=== PATIENT | male | born 1965 | race African-American/Black ===

== ENCOUNTER 2017-04-25 14:00 | Inpatient (IN) | payer MEDICARE, OTHER ==
[~2017-04-25] VITALS: Ht 187.5 cm; Wt 99.0 kg
[~2017-04-25 14:00] MED LIST: LORTA5 PO; METHO500 PO; ROBA750T3 PO; ROSU40 PO; TYLE3 PO; [UNRECOGNIZED DRUG - OTHER] PO
[2017-04-25 14:25] VITALS: BP 163/100; PULSE 71; RESP 18; TEMP 99; O2SAT 96
[2017-04-25] MEDS ORDERED: SILVER SULFADIAZINE 1% CR 400 GM JAR TOPICAL ONE (14:30)
[2017-04-25] MEDS ORDERED: MORPHINE SULFATE 4 MG/ML INJ IV PUSH ONE ×2 (14:30→18:45)
[2017-04-25] MEDS ORDERED: TYLETAB34 PO (14:39)
[2017-04-25] MEDS ORDERED: METH750T PO (14:39)
[2017-04-25] MEDS ORDERED: ROSU40 PO (14:39)
[2017-04-25] MEDS ORDERED: ATRITAB PO (14:39)
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
[2017-04-25 16:24] LABS: AUTOMATED NEUTROPHIL # 10.3 TH/MM3 (1.8-7.7); BASOPHIL % 0.3 % (0.0-2.0); EOSINOPHIL # 0.1 TH/MM3 (0-0.4); EOSINOPHIL % 0.8 % (0.0-4.0); HEMATOCRIT 44.4 % (39.0-51.0); HEMO FLAGS DIFF FINAL; MEAN CELL VOLUME 91.6 FL (80.0-100.0); MEAN CORPUSCULAR HEMOGLOBIN 31.4 PG (27.0-34.0); MEAN CORPUSCULAR HGB CONC 34.2 % (32.0-36.0); MONO % 6.9 % (0.0-8.0); PLATELET COUNT 208 TH/MM3 (150-450); RED BLOOD COUNT 4.85 MIL/MM3 (4.50-5.90); WHITE BLOOD COUNT 12.3 TH/MM3 (4.0-11.0)
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
--- NOTE | 2017-04-25 16:39 | RADRPT ---
EXAM DATE/TIME: 04/25/2017 15:55 [facility] COMPARISON: FOOT LEFT COMPLETE ([id number]), April 25, 2017, 15:16. INDICATIONS : Post reduction MEDICAL HISTORY : None. SURGICAL HISTORY : None. ENCOUNTER: Subsequent ACUITY: 1 day PAIN SCORE: 4/10 LOCATION: Left foot FINDINGS: The first interphalangeal joint is completely dislocated dorsally not significantly changed. CONCLUSION: Complete dislocation of the first interphalangeal joint dorsally. Estefania Harris MD on April 25, 2017 at 16:37 Board Certified Radiologist. This report was verified electronically.
[2017-04-25 16:44] LABS: ALT (GPT) 36 U/L (12-78)
[2017-04-25 16:45] LABS: ANION GAP 5 MEQ/L (5-15); AST (GOT) 29 U/L (15-37); BICARBONATE 25.7 MEQ/L (21.0-32.0); BLOOD UREA NITROGEN 14 MG/DL (7-18); CHLORIDE 107 MEQ/L (98-107); GLOMERULAR FILTRATION RATE 63 ML/MIN (>89); POTASSIUM 4.1 MEQ/L (3.5-5.1); SODIUM (NA) 138 MEQ/L (136-145)
[2017-04-25 16:47] LABS: ALKALINE PHOSPHATASE 48 U/L (45-117); TOTAL BILIRUBIN ADULT 0.4 MG/DL (0.2-1.0)
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
[2017-04-25] MEDS ORDERED: IOHEXOL 350 MG/ML 10 ML VIAL (for RAD DIAG) IV ONE (18:42)
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
[2017-04-25] MEDS ORDERED: ONDANSETRON HCL 4 MG/2 ML VIAL IVP PRN (19:30)
[2017-04-25] MEDS ORDERED: SODIUM CHLORIDE 0.9% FLUSH 10 ML FLUSH IV FLUSH PRN (19:30)
[2017-04-25] MEDS ORDERED: SENNOSIDES 8.6 MG TAB PO PRN (19:30)
[2017-04-25] MEDS ORDERED: MAGNESIUM HYDROXIDE SUSP 30 ML CUP PO PRN (19:30)
[2017-04-25] MEDS ORDERED: ACETAMINOPHEN 325 MG TAB PO PRN (19:30)
[2017-04-25] MEDS ORDERED: BISACODYL 10 MG SUPP RECTAL PRN (19:30)
[2017-04-25] MEDS ORDERED: LACTULOSE SYRUP 20 GM/30 ML CUP PO PRN (19:30)
[2017-04-25 19:50] VITALS: BP 167/108; PULSE 99; RESP 20; O2SAT 98
[2017-04-25] MEDS: SODIUM CHLORIDE 0.9% FLUSH 10 ML FLUSH IV FLUSH SCH (19:53)
[2017-04-25] MEDS: DOCUSATE SODIUM 50 MG/SENNA 8.6 MG TAB PO SCH (19:53)
[2017-04-25] MEDS: SODIUM CHLOR 0.9% 1000 ML INJ 1,000 ML IV SCH (19:53)
[2017-04-25] MEDS: METHOCARBAMOL 500 MG TAB PO SCH (19:53)
[2017-04-25 20:00] VITALS: BP 127/95; PULSE 119; RESP 18; TEMP 100.6; O2SAT 92
[2017-04-25] MEDS ORDERED: NON-FORMULARY DRUG (Efavirenz-Emtricitabine-Tenofovir (Atripla) 1 TAB) PO SCH (21:00)
[2017-04-25 21:16] VITALS: BP 138/88; PULSE 100; RESP 17; O2SAT 98
[2017-04-25] MEDS: EMTRICITABINE/TENOFOVIR 200 MG/300 MG TAB PO SCH (22:25)
[2017-04-25] MEDS: HYDROmorphone HCL PF 1 MG/ML VIAL IV PRN (22:31)
[2017-04-26] VITALS (7 sets, daily range): BP systolic 114–131; BP diastolic 70–96; PULSE 93–108; RESP 17–18; TEMP 98.2–99.9; O2SAT 92–96
[2017-04-26] MEDS: HYDROmorphone HCL PF 1 MG/ML VIAL IV PRN ×4 (03:12→16:35)
[2017-04-26] MEDS: SODIUM CHLOR 0.9% 1000 ML INJ 1,000 ML IV SCH ×3 (03:16→20:57)
[2017-04-26 04:33] LABS: AUTOMATED NEUTROPHIL # 5.9 TH/MM3 (1.8-7.7); BASOPHIL # 0.2 TH/MM3 (0-0.2); BASOPHIL % 2.3 % (0.0-2.0); EOSINOPHIL # 0.1 TH/MM3 (0-0.4); EOSINOPHIL % 1.6 % (0.0-4.0); HEMATOCRIT 44.3 % (39.0-51.0); HEMO FLAGS DIFF FINAL; LYMPHOCYTE # 0.9 TH/MM3 (1.0-4.8); MEAN CELL VOLUME 91.1 FL (80.0-100.0); MEAN CORPUSCULAR HEMOGLOBIN 31.5 PG (27.0-34.0); MEAN CORPUSCULAR HGB CONC 34.6 % (32.0-36.0); MONO % 7.3 % (0.0-8.0); NEUT % 76.8 % (16.0-70.0); PLATELET COUNT 200 TH/MM3 (150-450); RED BLOOD COUNT 4.86 MIL/MM3 (4.50-5.90); RED CELL DISTRIBUTION WIDTH 13.3 % (11.6-17.2); WHITE BLOOD COUNT 7.7 TH/MM3 (4.0-11.0)
[2017-04-26 05:01] LABS: ALKALINE PHOSPHATASE 43 U/L (45-117); ALT (GPT) 27 U/L (12-78); ANION GAP 11 MEQ/L (5-15); AST (GOT) 18 U/L (15-37); BICARBONATE 24.1 MEQ/L (21.0-32.0); BLOOD UREA NITROGEN 14 MG/DL (7-18); CHLORIDE 105 MEQ/L (98-107); GLOMERULAR FILTRATION RATE 68 ML/MIN (>89); POTASSIUM 3.6 MEQ/L (3.5-5.1); SODIUM (NA) 140 MEQ/L (136-145); TOTAL BILIRUBIN ADULT 0.8 MG/DL (0.2-1.0)
[2017-04-26] MEDS: METHOCARBAMOL 500 MG TAB PO SCH ×4 (07:27→20:55)
[2017-04-26] MEDS: DOCUSATE SODIUM 50 MG/SENNA 8.6 MG TAB PO SCH ×2 (07:27→20:55)
[2017-04-26] MEDS: ATORVASTATIN 80 MG TAB PO SCH (07:28)
[2017-04-26] MEDS: SODIUM CHLORIDE 0.9% FLUSH 10 ML FLUSH IV FLUSH SCH ×2 (07:28→20:57)
--- NOTE | 2017-04-26 12:06 | PD.POD.CON ---
Patient Intake Chief Complaint Dislocated IPJ left hallux Consult Requested by Dr. Trejo Reason for Consult Treatment of subluxation of the left interphalangeal joint of hallux Primary Care Physician [facility] Coded Allergies: penicillin G (Unverified Allergy, Mild, Hives, 04/25/17) promethazine (Unverified Adverse Reaction, Intermediate, VOMITING, 04/25/17 ) Preferred Language to Discuss: Taiwanese Barriers to Learning: None Teaching Method: Discussion Vital Signs Date Time Temp Pulse Resp B/P (MAP) Pulse Ox O2 Delivery O2 Flow Rate FiO2 04/26/17 07:50 99.9 101 17 127/81 (96) 96 04/26/17 04:00 98.2 108 18 114/70 (85) 93 04/26/17 00:00 99.8 94 18 129/87 (101) 95 04/25/17 21:16 100 17 138/88 (105) 98 Room Air 04/25/17 20:00 100.6 119 18 127/95 (106) 92 04/25/17 19:50 99 20 167/108 (127) 98 Room Air 04/25/17 14:25 99.0 71 18 163/100 (121) 96 04/25/17 14:25 Room Air Pain scale used: 0-10 numeric scale Pain score: 4 Medications Current Medications Silver Sulfadiazine (Silvadene 1% Cream (400 Gm)) 1 applic ONCE ONCE TOPICAL Last administered on 04/25/17 16:06; Start 04/25/17 at 14:30; Stop 04/25/17 at 14:31; Status DC Morphine Sulfate (Morphine Inj) 4 mg ONCE ONCE IV PUSH Last administered on 15:54; Start 04/25/17 at 14:30; Stop 04/25/17 at 14:31; Status DC Morphine Sulfate (Morphine Inj) 4 mg ONCE ONCE IV PUSH Last administered on 19:52; Start 04/25/17 at 18:45; Stop 04/25/17 at 18:46; Status DC Iohexol (Omnipaque 350 Inj) 95 ml STK-MED ONCE IV Last administered on 18:42; Start 04/25/17 at 18:42; Stop 04/25/17 at 18:43; Status DC Sodium Chloride 1,000 ml @ 100 mls/hr Q10H IV Last administered on 04/26/17 03:16; Start 04/25/17 at 19:25 Sodium Chloride (NS Flush) 2 ml UNSCH PRN IV FLUSH FLUSH AFTER USING IV ACCESS ; Start 04/25/17 at 19:30 Sodium Chloride (NS Flush) 2 ml BID IV FLUSH Last administered on 04/26/17 07: 28; Start 04/25/17 at 21:00 Ondansetron HCl (Zofran Inj) 4 mg Q6H PRN IVP NAUSEA OR VOMITING; Start at 19:30 Acetaminophen (Tylenol) 650 mg Q6H PRN PO FEVER/PAIN SCALE 1 TO 2; Start at 19:30 Hydromorphone HCl (Dilaudid Pf Inj) 1 mg Q3H PRN IV Pain 6-10 Last administered on 04/26/17 03:12; Start 04/25/17 at 19:30 Oxycodone HCl (Roxicodone) 5 mg Q4H PRN PO PAIN SCALE 3 TO 5; Start 04/25/17 at 19:30 Senna/Docusate Sodium (Stephanie-Colace) 1 tab BID PO Last administered on 07:27; Start 04/25/17 at 21:00 Magnesium Hydroxide (Milk Of Magnesia Liq) 30 ml Q12H PRN PO MILD - MODERATE CONSTIPATION; Start 04/25/17 at 19:30 Sennosides (Senokot) 17.2 mg Q12H PRN PO MODERATE - SEVERE CONSTIPATION; Start 04/25/17 at 19:30 Bisacodyl (Dulcolax Supp) 10 mg DAILY PRN RECTAL SEVERE CONSITIPATION; Start at 19:30 Lactulose (Lactulose Liq) 30 ml DAILY PRN PO SEVERE CONSITIPATION; Start at 19:30 Methocarbamol (Robaxin) 750 mg QID PO Last administered on 04/26/17 07:27; Start 04/25/17 at 21:00 Non-Formulary Medication 1 tab HS PO ; Start 04/25/17 at 21:00; Status UNV Atorvastatin Calcium (Lipitor) 80 mg DAILY PO CM Last administered on 04/26/17 07:28; Start 04/26/17 at 09:00 Emtricitabine/ Tenofovir (Truvada 200-300 Mg) 1 tab HS PO Last administered on 04/25/17 22:25; Start 04/25/17 at 21:00 Efavirenz (Sustiva) 600 mg HS PO Last administered on 04/25/17 22:25; Start at 21:00 Past, Family & Social History Past Medical History PFSH Reviewed: Yes Review of Systems Constitutional: COMPLAINS OF: Pain Musculoskeletal: COMPLAINS OF: Deformaties Exam-Podiatry Constitutional General appearance: comfortable Nutritional status: normal Orientation: alert and oriented x3 Dermatological Exam Skin Temp - Right: Within Normal Limits Skin Texture - Right: Within Normal Limits Skin Elasticity - Right: Within Normal Limits Skin Tugor - Right: Within Normal Limits Hair Growth - Right: Within Normal Limits Pigmentation - Right: Within Normal Limits Skin Temp - Left: Within Normal Limits Skin Texture - Left: Within Normal Limits Skin Elasticity - Left: Within Normal Limits Skin Tugor - Left: Within Normal Limits Hair Growth - Left: Within Normal Limits Pigmentation - Left: Within Normal Limits Vascular/Lymphatic Exam R Dorsails Pedis: Palpable L Dorsails Pedis: Palpable R Posterior Tibial: Palpable L Posterior Tibial: Palpable Neurologic Exam Details No neurological deficits seen Muscle Strength Dorsiflexion (Right): Normal Plantarflexion (Right): Normal Inversion (Right): Normal Eversion (Right): Normal Digital (Right): Normal Dorsiflexion (Left): Normal Plantarflexion (Left): Normal Inversion (Left): Normal Eversion (Left): Normal Digital (Left): Normal Foot Range of Motion Dorsiflexion (Right): Normal Plantarflexion (Right): Normal Inversion (Right): Normal Eversion (Right): Normal Digital (Right): Normal Dorsiflexion (Left): Normal Plantarflexion (Left): Normal Inversion (Left): Normal Eversion (Left): Normal Digital (Left): Normal Joint Instability Details Subluxed dislocated IPJ left hallux Lab and Radiology Results Laboratory Laboratory Tests Test 04/25/17 16:00 04/26/17 03:23 White Blood Count 12.3 TH/MM3 7.7 TH/MM3 Red Blood Count 4.85 MIL/MM3 4.86 MIL/MM3 Hemoglobin 15.2 GM/DL 15.3 GM/DL Hematocrit 44.4 % 44.3 % Mean Corpuscular Volume 91.6 FL 91.1 FL Mean Corpuscular Hemoglobin 31.4 PG 31.5 PG Mean Corpuscular Hemoglobin Concent 34.2 % 34.6 % Red Cell Distribution Width 13.0 % 13.3 % Platelet Count 208 TH/MM3 200 TH/MM3 Mean Platelet Volume 7.4 FL 7.4 FL Neutrophils (%) (Auto) 84.0 % 76.8 % Lymphocytes (%) (Auto) 8.0 % 12.0 % Monocytes (%) (Auto) 6.9 % 7.3 % Eosinophils (%) (Auto) 0.8 % 1.6 % Basophils (%) (Auto) 0.3 % 2.3 % Neutrophils # (Auto) 10.3 TH/MM3 5.9 TH/MM3 Lymphocytes # (Auto) 1.0 TH/MM3 0.9 TH/MM3 Monocytes # (Auto) 0.9 TH/MM3 0.6 TH/MM3 Eosinophils # (Auto) 0.1 TH/MM3 0.1 TH/MM3 Basophils # (Auto) 0.0 TH/MM3 0.2 TH/MM3 CBC Comment DIFF FINAL DIFF FINAL Differential Comment Laboratory Tests Test 04/25/17 16:00 04/26/17 03:23 Blood Urea Nitrogen 14 MG/DL 14 MG/DL Creatinine 1.44 MG/DL 1.35 MG/DL Random Glucose 87 MG/DL 105 MG/DL Total Protein 7.8 GM/DL 6.9 GM/DL Albumin 4.3 GM/DL 3.6 GM/DL Calcium Level 9.3 MG/DL 8.9 MG/DL Alkaline Phosphatase 48 U/L 43 U/L Aspartate Amino Transf (AST/SGOT) 29 U/L 18 U/L Alanine Aminotransferase (ALT/SGPT) 36 U/L 27 U/L Total Bilirubin 0.4 MG/DL 0.8 MG/DL Sodium Level 138 MEQ/L 140 MEQ/L Potassium Level 4.1 MEQ/L 3.6 MEQ/L Chloride Level 107 MEQ/L 105 MEQ/L Carbon Dioxide Level 25.7 MEQ/L 24.1 MEQ/L Anion Gap 5 MEQ/L 11 MEQ/L Estimat Glomerular Filtration Rate 63 ML/MIN 68 ML/MIN Radiology Last Impressions Hip and Pelvis X-Ray 04/25/17 0000 Signed Impressions: Service Date/Time: Tuesday, April 25, 2017 15:12 - CONCLUSION: Unremarkable study. Estefania Harris MD Foot X-Ray 04/25/17 0000 Signed Impressions: Service Date/Time: Tuesday, April 25, 2017 15:55 - CONCLUSION: Complete dislocation of the first interphalangeal joint dorsally. Estefania Harris MD Chest X-Ray 04/25/17 0000 Signed Impressions: Service Date/Time: Tuesday, April 25, 2017 15:18 - CONCLUSION: No acute cardiopulmonary disease. Estefania Harris MD Abdomen/Pelvis CT 04/25/17 0000 Signed Impressions: Service Date/Time: Tuesday, April 25, 2017 18:15 - CONCLUSION: Essentially unremarkable study except for slight fat herniation underneath the umbilicus. Estefania Harris MD Assessment/Plan Problem List: (1) Dislocation of toe of left foot Status: Acute Additional Plans & Procedures Discussed with patient plans for surgical reduction with percutaneous pinning. He agrees to proceed with planned surgery. Preop consent orders written Problem Qualifiers (1) Dislocation of toe of left foot: Artie Wilson DPM Apr 26, 2017 12:06
[2017-04-26] MEDS ORDERED: fentaNYL CITRATE 250 MCG/5 ML AMP ONE (13:17)
[2017-04-26] MEDS: BUPIVACAINE HCL PF 0.5% 30 ML VIAL ONE (13:31)
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
[2017-04-26] MEDS ORDERED: DO NOT ADM ANY ANTICOAGULANT DRUGS PRN (13:49)
[2017-04-26] MEDS ORDERED: PERC5TAB12 PO (13:54)
[2017-04-26] MEDS ORDERED: BACT800T5 PO (13:54)
[2017-04-26] MEDS ORDERED: Post-op Orders (for Pharmacy) MISC XX ONE (14:00)
[2017-04-26] MEDS ORDERED: SODIUM CHLORIDE 0.9% FLUSH 10 ML FLUSH IV FLUSH PRN (14:00)
[2017-04-26] MEDS ORDERED: NALOXONE HCL 0.4 MG/ML AMP IV PRN (14:00)
--- NOTE | 2017-04-26 14:26 | RADRPT ---
EXAM DATE/TIME: 04/26/2017 13:54 [facility] COMPARISON: FOOT LEFT COMPLETE ([id number]), April 25, 2017, 15:16. INDICATIONS : Post op left foot. MEDICAL HISTORY : Cardiovascular disease. SURGICAL HISTORY : None. ENCOUNTER: Initial ACUITY: 1 day PAIN SCORE: Non-responsive. LOCATION: Left foot. FINDINGS: Three view examination of the left foot demonstrates 2 pins traversing the proximal and middle phalan x of the great toe. There continues to be anterior subluxation of the distal phalanx. CONCLUSION: 1. 2 pins are seen one traversing the distal phalanx and the other traversing the proximal phalanx. T here continues to be anterior subluxation of the distal phalanx. Artie Tejada MD on April 26, 2017 at 14:22 Board Certified Radiologist. This report was verified electronically.
[2017-04-26] MEDS: diphenhydrAMINE HCL 25 MG CAP PO PRN (17:56)
[2017-04-26] MEDS: ACETAMINOPHEN/HYDROcodone 325 MG/5 MG TAB PO PRN (20:56)
[2017-04-26] MEDS: EMTRICITABINE/TENOFOVIR 200 MG/300 MG TAB PO SCH (20:57)
[2017-04-27] VITALS (8 sets, daily range): BP systolic 118–146; BP diastolic 67–100; PULSE 82–111; RESP 17–20; TEMP 96.8–101.8; O2SAT 92–96
[2017-04-27] MEDS: ACETAMINOPHEN/HYDROcodone 325 MG/5 MG TAB PO PRN ×4 (02:12→17:58)
[2017-04-27] MEDS: METHOCARBAMOL 500 MG TAB PO SCH ×4 (07:56→20:32)
[2017-04-27] MEDS: DOCUSATE SODIUM 50 MG/SENNA 8.6 MG TAB PO SCH ×2 (07:56→20:33)
[2017-04-27] MEDS: SODIUM CHLORIDE 0.9% FLUSH 10 ML FLUSH IV FLUSH SCH ×2 (07:57→20:33)
[2017-04-27] MEDS: ATORVASTATIN 80 MG TAB PO SCH (07:57)
[2017-04-27 08:16] LABS: AUTOMATED NEUTROPHIL # 4.5 TH/MM3 (1.8-7.7); BASOPHIL % 0.6 % (0.0-2.0); EOSINOPHIL # 0.1 TH/MM3 (0-0.4); EOSINOPHIL % 1.8 % (0.0-4.0); HEMATOCRIT 41.1 % (39.0-51.0); HEMO FLAGS DIFF FINAL; LYMPH % 14.8 % (9.0-44.0); LYMPHOCYTE # 0.9 TH/MM3 (1.0-4.8); MEAN CELL VOLUME 91.2 FL (80.0-100.0); MEAN CORPUSCULAR HEMOGLOBIN 31.4 PG (27.0-34.0); MEAN CORPUSCULAR HGB CONC 34.4 % (32.0-36.0); MONO % 9.9 % (0.0-8.0); NEUT % 72.9 % (16.0-70.0); PLATELET COUNT 172 TH/MM3 (150-450); RED BLOOD COUNT 4.51 MIL/MM3 (4.50-5.90); RED CELL DISTRIBUTION WIDTH 12.8 % (11.6-17.2); WHITE BLOOD COUNT 6.2 TH/MM3 (4.0-11.0)
[2017-04-27 08:43] LABS: BICARBONATE 27.2 MEQ/L (21.0-32.0); POTASSIUM 3.3 MEQ/L (3.5-5.1)
[2017-04-27] MEDS: SODIUM CHLOR 0.9% 1000 ML INJ 1,000 ML IV SCH ×2 (11:25→20:36)
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
[2017-04-27] MEDS ORDERED: POTASSIUM CHLORIDE 10 MEQ CONTROLLED RELEASE TAB PO ONE (13:30)
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
[2017-04-27] MEDS: diphenhydrAMINE HCL 25 MG CAP PO PRN (18:14)
[2017-04-27] MEDS: EMTRICITABINE/TENOFOVIR 200 MG/300 MG TAB PO SCH (20:33)
[2017-04-27] MEDS: ACETAMINOPHEN 325 MG TAB PO PRN (23:46)
[2017-04-28] VITALS: BP 107/64; PULSE 80; RESP 19; TEMP 100.2; O2SAT 94
--- NOTE | 2017-04-28 | RADRPT ---
EXAM DATE/TIME: 04/27/2017 23:33 [facility] COMPARISON: No previous studies available for comparison. INDICATIONS : Fever. Chest pain. MEDICAL HISTORY : None. SURGICAL HISTORY : None. ENCOUNTER: Subsequent ACUITY: 1 day PAIN SCORE: 5/10 LOCATION: Right chest FINDINGS: A single view of the chest demonstrates the lungs to be symmetrically aerated without evidence of mas s, infiltrate or effusion. The cardiomediastinal contours are unremarkable. Osseous structures are intact. CONCLUSION: No acute disease. Pravin Chiu MD on April 27, 2017 at 23:58 Board Certified Radiologist. This report was verified electronically.
[2017-04-28 00:33] LABS: AUTOMATED NEUTROPHIL # 5.1 TH/MM3 (1.8-7.7); BASOPHIL % 0.7 % (0.0-2.0); EOSINOPHIL # 0.2 TH/MM3 (0-0.4); EOSINOPHIL % 2.8 % (0.0-4.0); HEMATOCRIT 41.3 % (39.0-51.0); HEMO FLAGS DIFF FINAL; LYMPH % 11.2 % (9.0-44.0); LYMPHOCYTE # 0.7 TH/MM3 (1.0-4.8); MEAN CELL VOLUME 91.1 FL (80.0-100.0); MEAN CORPUSCULAR HEMOGLOBIN 30.3 PG (27.0-34.0); MEAN CORPUSCULAR HGB CONC 33.3 % (32.0-36.0); MONO % 7.7 % (0.0-8.0); NEUT % 77.6 % (16.0-70.0); PLATELET COUNT 177 TH/MM3 (150-450); RED BLOOD COUNT 4.53 MIL/MM3 (4.50-5.90); RED CELL DISTRIBUTION WIDTH 13.1 % (11.6-17.2); WHITE BLOOD COUNT 6.5 TH/MM3 (4.0-11.0)
[2017-04-28 01:24] VITALS: TEMP 100.6
[2017-04-28] MEDS ORDERED: ALUMINUM/MAGNESIUM/SIMETH 30 ML CUP PO ONE (02:00)
[2017-04-28 03:17] VITALS: BP 117/70; PULSE 91; RESP 20; TEMP 100.1; O2SAT 92
[2017-04-28 04:24] LABS: BLOOD, URINE NEG (NEG); GLUCOSE,URINE NEG (NEG); KETONE, URINE NEG (NEG); MUCUS URINE FEW /lpf (OCC); NITRITE,URINE NEG (NEG); URINE COLOR YELLOW (YELLW/STRAW)
[2017-04-28 04:26] LABS: COMMENT (UR) CULT NOT INDICATED; CULTURE IF INDICATED CULT NOT INDICATED
[2017-04-28] MEDS: SODIUM CHLOR 0.9% 1000 ML INJ 1,000 ML IV SCH (07:25)
[2017-04-28 08:00] VITALS: BP 120/85; PULSE 94; RESP 17; TEMP 100.1; O2SAT 92
[2017-04-28] MEDS: METHOCARBAMOL 500 MG TAB PO SCH ×2 (08:13→13:33)
[2017-04-28] MEDS: ATORVASTATIN 80 MG TAB PO SCH (08:13)
[2017-04-28] MEDS: DOCUSATE SODIUM 50 MG/SENNA 8.6 MG TAB PO SCH (08:13)
[2017-04-28] MEDS: ACETAMINOPHEN 325 MG TAB PO PRN (08:14)
[2017-04-28] MEDS: SODIUM CHLORIDE 0.9% FLUSH 10 ML FLUSH IV FLUSH SCH (08:18)
[2017-04-28 11:04] VITALS: O2SAT 93
[2017-04-28 12:00] VITALS: BP 109/72; PULSE 95; RESP 17; TEMP 97.2; O2SAT 95
[2017-04-28] MEDS ORDERED: ONDANSETRON HCL 4 MG/2 ML VIAL IV PUSH ONE (12:00)
[2017-04-28] MEDS ORDERED: PHENYLEPH/NS 1000 MCG/10 ML SYR IV ONE (12:00)
[2017-04-28] MEDS ORDERED: PROPOFOL 200 MG/20 ML AMP IV ONE (12:00)
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
[2017-04-28] MEDS ORDERED: SULFAMETHOXAZOLE-TRIMETHOPRIM DS 800-160 MG TAB PO SCH (13:00)
--- NOTE | 2017-04-28 13:50 | EKG ---
Date Performed: 04/28/2017 Time Performed: 07:20:33 PTAGE: 51 years EKG: Sinus rhythm POSSIBLE LEFT ATRIAL ENLARGEMENT BORDERLINE LEFT AXIS DEVIATION POSSIBLE LEFT VENTRICULAR HYPERTROPH Y NONSPECIFIC T-WAVE ABNORMALITY ABNORMAL ECG Compared to prior tracing no significant change PREVIOUS TRACING : 06/14/2013 13.39 DOCTOR: Bibi Rodriguez Interpretating Date/Time 04/28/2017 13:43:52
--- NOTE | 2017-04-28 13:50 | EKG ---
Date Performed: 04/28/2017 Time Performed: 00:04:26 PTAGE: 51 years EKG: Sinus rhythm POSSIBLE LEFT ATRIAL ENLARGEMENT BORDERLINE LEFT AXIS DEVIATION POSSIBLE LEFT VENTRICULAR HYPERTROPH Y NONSPECIFIC T-WAVE ABNORMALITY PROLONGED QT INTERVAL ABNORMAL ECG PREVIOUS TRACING : 06/14/2013 13.39 Since the prior tracing, the nonspecifc T-wave changes and the QT prolongation are new. Clinical correlation advised. DOCTOR: Bibi Rodriguez Interpretating Date/Time 04/28/2017 13:44:11
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
== END 2017-04-28 14:52 | disposition home or self-care (01) | DRG 506 ==
LOC: NEPD 14:00 → NEDA 19:15 → OBSVTOIN 19:27 → N07B 21:41
PROVIDERS: ADMIT Internal Medicine; ATTEND Internal Medicine
PROC: 0RHX34Z Insertion of Internal Fixation Device into Left Finger Phalangeal Joint, Percutaneous Approach (ICD-10-PCS; principal; 2017-04-26 13:20)
DX: S92.425A Nondisplaced fracture of distal phalanx of left great toe, initial encounter for closed fracture (principal); B20 Human immunodeficiency virus [HIV] disease; I10 Essential (primary) hypertension; N28.9 Disorder of kidney and ureter, unspecified; Y92.410 Unspecified street and highway as the place of occurrence of the external cause; E78.5 Hyperlipidemia, unspecified; V23.4XXA Motorcycle driver injured in collision with car, pick-up truck or van in traffic accident, initial encounter; E87.6 Hypokalemia; S61.216A Laceration without foreign body of right little finger without damage to nail, initial encounter
CPT/HCPCS: 12001; 16000; 28660; 71010; 71020; 73120; 73502; 73620; 73630; 74177; 80048; 80053; 81001; 83605; 84132; 84484; 85025; 87040; 93005; 96374; J1170; J2270; J2370; J2405; J3010; J7030; L3260; Q9967

== ENCOUNTER 2017-05-23 09:52 | Emergency (ER) | payer MEDICARE ==
[~2017-05-23] VITALS: Ht 188 cm; Wt 90.0 kg
[~2017-05-23 09:52] MED LIST changes: +ATRITAB PO; +BACT800T5 PO; -LORTA5 PO; +METH750T PO; -METHO500 PO; +PERC5TAB12 PO; -ROBA750T3 PO; -TYLE3 PO; +TYLETAB34 PO; -[UNRECOGNIZED DRUG - OTHER] PO
[2017-05-23 09:55] VITALS: BP 140/102; PULSE 78; RESP 16; TEMP 99.4; O2SAT 97
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
--- NOTE | 2017-05-23 11:46 | RADRPT ---
EXAM DATE/TIME: 05/23/2017 10:53 [facility] COMPARISON: FOOT LEFT COMPLETE ([id number]), April 26, 2017, 13:54. INDICATIONS : Surgical pins causing discomfort. MEDICAL HISTORY : Cardiovascular disease. SURGICAL HISTORY : Surgery to left great toe. ENCOUNTER: Initial ACUITY: 4 - 6 days PAIN SCORE: 3/10 LOCATION: Left 1st Digit. FINDINGS: 2 pins are seen at the first digit. The more medial pin appears to extend through the distal aspect o f the first proximal phalanx. The lateral pin extends to the lateral eighth of the first distal phala nx. There is dislocation at the first interphalangeal joint with the distal phalanx displaced dorsall y. CONCLUSION: Dislocation of the percent of nodule joints. The pins do not traverse the joint. This appearance is u nchanged from the prior exam. Yash Kumar MD on May 23, 2017 at 11:42 Board Certified Radiologist. This report was verified electronically.
== END 2017-05-23 12:03 | disposition home or self-care (01) ==
LOC: NEPD 09:52
DX: Z47.89 Encounter for other orthopedic aftercare (principal); Z21 Asymptomatic human immunodeficiency virus [HIV] infection status; E78.00 Pure hypercholesterolemia, unspecified; Z88.0 Allergy status to penicillin; Z88.8 Allergy status to other drugs, medicaments and biological substances; Z79.899 Other long term (current) drug therapy
CPT/HCPCS: 73660; 99283